=== PATIENT | male | born 1965 | race Caucasian/White ===

== ENCOUNTER → 2016-09-03 | Outpatient (CLI) | payer BC ==
[~2016-09-03] MED LIST: ALLOPURINOL100 MG PO; CELEXA10 MG PO; DICLOFENAC SOD100 MG PO; DOXAZOSIN MESYLA2 MG PO; SIMVASTATIN10 MG PO; SIMVASTATIN20 MG PO; TARKA PO
== END | disposition home or self-care (01) ==
LOC: AMB 12:50
DX: R53.1 Weakness (principal); R32 Unspecified urinary incontinence; G96.19 Other disorders of meninges, not elsewhere classified
CPT/HCPCS: 62303; 72129

== ENCOUNTER → 2016-09-12 | Outpatient (CLI) | payer BC ==
[~2016-09-12] MED LIST changes: +ATIVAN2 MG PO; +BACTRIM,SEPT1 TABLET PO; +NORCO 7.5/321 TABLET PO; +PARAFON FORTE500 MG PO; +VALIUM5 MG PO
== END | disposition home or self-care (01) ==
LOC: CDC 14:54
DX: Z01.810 Encounter for preprocedural cardiovascular examination (principal); G95.9 Disease of spinal cord, unspecified; G93.0 Cerebral cysts; G95.20 Unspecified cord compression
CPT/HCPCS: 93000

== ENCOUNTER 2016-09-18 08:44 | Inpatient (IN) | payer BC ==
[~2016-09-18] VITALS: Ht 188 cm; Wt 117.6 kg
[~2016-09-18 08:44] MED LIST changes: -BACTRIM,SEPT1 TABLET PO; -NORCO 7.5/321 TABLET PO; -PARAFON FORTE500 MG PO; -VALIUM5 MG PO
[2016-09-19 13:09] VITALS: BP 136/91
[2016-09-19 13:22] VITALS: BP 136/91
[2016-09-19 22:22] VITALS: BP 165/96
[2016-09-19 23:22] VITALS: BP 139/92
[2016-09-20] VITALS: BP 139/92
[2016-09-20 03:36] VITALS: BP 142/89
[2016-09-20 08:00] VITALS: BP 139/87
[2016-09-20 12:16] VITALS: BP 123/70
[2016-09-20 16:00] VITALS: BP 135/75
[2016-09-20 23:27] VITALS: BP 136/79
[2016-09-21] VITALS: BP 136/79
[2016-09-21 07:41] VITALS: BP 135/84
[2016-09-21 16:24] VITALS: BP 133/75
[2016-09-21 23:47] VITALS: BP 132/78
[2016-09-22] VITALS: BP 132/78
[2016-09-22 07:38] VITALS: BP 112/71
[2016-09-22] MEDS ORDERED: NORCO 7.5/321 TABLET PO (14:39)
[2016-09-22] MEDS ORDERED: VALIUM5 MG PO (14:41)
[2016-09-22] MEDS ORDERED: PARAFON FORTE500 MG PO (14:41)
[2016-09-22] MEDS ORDERED: BACTRIM,SEPT1 TABLET PO (14:42)
[2016-09-22 15:33] VITALS: BP 111/64
== END 2016-09-22 17:18 | disposition home or self-care (01) | DRG 30 ==
LOC: 2SOUTH → 3EAST 09-19 12:48
DX: G96.19 Other disorders of meninges, not elsewhere classified (principal); G95.29 Other cord compression; G97.1 Other reaction to spinal and lumbar puncture; L70.0 Acne vulgaris; J45.909 Unspecified asthma, uncomplicated; I10 Essential (primary) hypertension; M10.9 Gout, unspecified; Z98.1 Arthrodesis status; Z79.1 Long term (current) use of non-steroidal anti-inflammatories (NSAID)
CPT/HCPCS: 72020; 76000; 88304; 94799; C9113; J0330; J0690; J1100; J1170; J2060; J2250; J2405; J2930; J3010; J3370; J3480; J7040; S0020

== ENCOUNTER 2016-09-29 17:27 | Emergency (ER) | payer BC ==
[~2016-09-29] VITALS: Ht 188 cm; Wt 102.2 kg
[~2016-09-29 17:27] MED LIST changes: +BACTRIM,SEPT1 TABLET PO; +NORCO 7.5/321 TABLET PO; +PARAFON FORTE500 MG PO; +VALIUM5 MG PO
[2016-09-29 18:04] LABS: HEMATOCRIT 38.3 % (38.0-50.0); MCH 29.8 PG (29.0-34.0); MCHC 33.7 G/DL (30.0-36.0); MCV 88.5 FL (86-99); PLATELET COUNT 183 K/uL (156-360); RBC DIS.WIDTH-CV 11.7 % (11.8-14.6); RBC DIS.WIDTH-SD 37.6 % (39-53); RED BLOOD COUNT 4.33 M/uL (4.00-5.50)
[2016-09-29 18:05] LABS: WHITE BLOOD COUNT 9.1 K/uL (4.1-10.2)
[2016-09-29 18:15] LABS: CHLORIDE 100 mEq/L (99-109); POTASSIUM 4.8 mEq/L (3.7-5.4); SODIUM 135 mEq/L (136-147)
[2016-09-29 18:17] LABS: GLUCOSE 125 mg/dL (70-99)
[2016-09-29 18:18] LABS: ANION GAP 12 MEQ/L (2-14)
[2016-09-29 18:20] LABS: GFR ESTIMATE (CALCULATED) > 59 mL/min/
[2016-09-29 18:21] LABS: UREA NITROGEN (BUN) 18 mg/dL (9-23)
[2016-09-29 18:24] LABS: TROP-I INTERPRETATION NEGATIVE; TROPONIN-I 0.09 ng/mL (0.0-0.30)
[2016-09-29 20:51] LABS: INTER. NORMALIZED RATIO 1.1; PTT 29.5 (25-32)
[2016-09-29] MEDS ORDERED: TARKA 4/2401 TABLET PO (21:51)
[2016-09-29] MEDS ORDERED: VOLTAREN75 MG PO (21:52)
[2016-09-29] MEDS ORDERED: EX-LAX15 MG PO (21:55)
[2016-09-29] MEDS ORDERED: CYMBALTA20 MG PO (21:56)
[2016-09-29] MEDS ORDERED: ASPIRIN325 MG PO (21:56)
[2016-09-30 02:30] VITALS: BP 93/78
== END 2016-09-30 02:54 | disposition short-term general hospital (02) ==
LOC: EME 17:27
PROVIDERS: Emergency Medicine
DX: I26.92 Saddle embolus of pulmonary artery without acute cor pulmonale (principal); J45.909 Unspecified asthma, uncomplicated; E78.5 Hyperlipidemia, unspecified; I10 Essential (primary) hypertension; Z87.442 Personal history of urinary calculi; Z98.1 Arthrodesis status
CPT/HCPCS: 71020; 71275; 80048; 83880; 84484; 85027; 85610; 85730; 93005; 99281; 99285; J2060; J3010; J7030

== ENCOUNTER → 2017-12-17 | Outpatient (CLI) | payer BC ==
[~2017-12-17] VITALS: Ht 188 cm; Wt 102.1 kg
[~2017-12-17] MED LIST changes: +ASPIRIN325 MG PO; +CYMBALTA20 MG PO; +ELIQUIS2.5 MG PO; +EX-LAX15 MG PO; +PROTONIX40 MG PO; +TARKA 4/2401 TABLET PO; +VOLTAREN75 MG PO
[2017-12-17 10:51] VITALS: BP 127/84
== END | disposition home or self-care (01) ==
LOC: OPR 12-06 08:00
PROC: B030YZZ Magnetic Resonance Imaging (MRI) of Brain using Other Contrast (ICD-10-PCS; principal; 2017-12-17)
DX: R26.9 Unspecified abnormalities of gait and mobility (principal); R53.1 Weakness
CPT/HCPCS: 70553; 93005; J2250; J3010